=== PATIENT | female | born 1970 | race Caucasian/White ===

== ENCOUNTER → 2024-02-04 07:51 | Outpatient (REF) | payer BC, SELFPAY | LOC: EMG 07:51 | PROVIDERS: ATTENDING PHYSICIAN Orthopaedic Surgery Hand Surgery; FAMILY PHYSICIAN Family Medicine | DX: M79.642 Pain in left hand (principal); M79.641 Pain in right hand; R20.0 Anesthesia of skin; R20.2 Paresthesia of skin | CPT/HCPCS: 95886; 95911 ==

== ENCOUNTER → 2024-02-23 13:20 | Outpatient (REF) | payer BC, SELFPAY | LOC: WDC 13:20 | PROVIDERS: ATTENDING PHYSICIAN Family Medicine | DX: E04.1 Nontoxic single thyroid nodule (principal); Z12.31 Encounter for screening mammogram for malignant neoplasm of breast | CPT/HCPCS: 76536; 77063; 77067 ==

== ENCOUNTER 2024-05-26 06:44 | Outpatient (RCR) | payer BC, SELFPAY | END 2024-05-26 23:59 | disposition home or self-care (01) | LOC: RPT 06:44 | PROVIDERS: Orthopaedic Surgery Hand Surgery; ATTENDING PHYSICIAN Physical Medicine & Rehabilitation; FAMILY PHYSICIAN Family Medicine | DX: M25.512 Pain in left shoulder (principal); Z73.6 Limitation of activities due to disability; M54.16 Radiculopathy, lumbar region; M51.27 Other intervertebral disc displacement, lumbosacral region | CPT/HCPCS: 97010; 97018; 97035; 97110; 97140; 97162; 97164; 97166; 97535 ==

== ENCOUNTER 2024-07-04 15:00 | Outpatient (RCR) | payer BC, SELFPAY | END 2024-07-04 23:59 | disposition home or self-care (01) | LOC: ROT 15:00 | PROVIDERS: ATTENDING PHYSICIAN Physical Medicine & Rehabilitation; FAMILY PHYSICIAN Family Medicine | DX: M25.512 Pain in left shoulder (principal); Z73.6 Limitation of activities due to disability; M54.16 Radiculopathy, lumbar region; M51.27 Other intervertebral disc displacement, lumbosacral region | CPT/HCPCS: 97010; 97018; 97035; 97110; 97535 ==

== ENCOUNTER → 2024-07-14 06:25 | Day surgery (SDC) | payer BC, SELFPAY | LOC: GI 06:25 | PROVIDERS: ATTENDING PHYSICIAN Specialist | DX: Z12.11 Encounter for screening for malignant neoplasm of colon (principal) | CPT/HCPCS: G0121 ==